=== PATIENT | male | born 1970 | race Caucasian/White ===

== ENCOUNTER 2019-03-22 18:19 | Emergency (ER) | payer MEDICAID ==
[~2019-03-22] VITALS: Ht 195.6 cm; Wt 101.6 kg
[2019-03-22 18:20] VITALS: BP 111/78
[2019-03-22] MEDS ORDERED: IBUPROFEN 600 MG TABLET PO ONE ×2 (18:30→18:41)
[2019-03-22] MEDS ORDERED: HYDROCODONE/APAP 5/325MG 1 EACH TABLET PO ONE (18:30)
[2019-03-22] MEDS ORDERED: HYDROCODONE/APAP 5/325MG 1 EACH TABLET ONE (18:41)
--- NOTE | 2019-03-22 19:44 | NUR ---
Patient given written and verbal discharge instructions. Patient verbalizes understanding of instructions. Patient is ambulatory with steady gait. Refuses offer of penitentiary placement. Patient given list of available shelters in surrounding area.
== END 2019-03-22 19:46 | disposition home or self-care (01) ==
LOC: ER 18:20
DX: M54.5 Low back pain (principal); Y08.89XA Assault by other specified means, initial encounter; Y93.89 Activity, other specified; Y92.89 Other specified places as the place of occurrence of the external cause; Y99.8 Other external cause status
CPT/HCPCS: 72110-TC